=== PATIENT | male | born 1960 | race African-American/Black ===

== ENCOUNTER 2018-02-02 16:14 | Day surgery (SDC) | payer OTHER ==
[2018-01-30 16:19] VITALS: BMI 34.9
[2018-02-02 16:57] VITALS: TEMP 98.3
[2018-02-02] MEDS ORDERED: fentaNYL CITRATE 250 MCG/5 ML VIAL ONE (17:54)
[2018-02-02] MEDS ORDERED: MIDAZOLAM HCL 2 MG/2 ML SINGLE DOSE VIAL ONE (17:54)
--- NOTE | 2018-02-02 18:31 | OP ---
Operative Note - Note: Operative Date: 02/02/18 Pre-Operative Diagnosis: Left kidney stone Operation: Left ESWL Findings: 5 mm lower pole L kidney stone Post-Operative Diagnosis: Same as Pre-op Anesthesia: Fractional Operative Report Dictated: Yes
[2018-02-02 20:15] VITALS: BP 114/84; PULSE 67
--- NOTE | 2018-02-03 11:25 | OP ---
DATE OF OPERATION: 02/02/2018 PREOPERATIVE DIAGNOSIS: Left renal stone. POSTOPERATIVE DIAGNOSIS: Left renal stone. PROCEDURE: Left extracorporeal shock wave lithotripsy. ATTENDING: Tony Dai MD ANESTHESIA: Fractional. DESCRIPTION OF OPERATION: Patient brought into the operating room and placed on the operating room table in a supine position. Ultrasonography and fluoroscopy were performed. A 5-mm left lower pole stone was identified. At this point, fractional anesthesia and preoperative antibiotics were administered. Extracorporeal shock wave lithotripsy was then started; 2500 impulses at 18 joules of power were administered to the stone with excellent fragmentation under real-time ultrasonography and fluoroscopy. No complications were noted. The patient tolerated the procedure very well. The disposition of the patient was to the recovery room. TONY DAI M.D. [id number]
== END 2018-02-02 20:24 | disposition home or self-care (01) ==
LOC: JASU-SURG 16:14
PROVIDERS: ATTEND Urology
PROC: 0TF4XZZ Fragmentation in Left Kidney Pelvis, External Approach (ICD-10-PCS; principal; 2018-02-02 17:45)
DX: N20.0 Calculus of kidney (principal)
CPT/HCPCS: 82962